=== PATIENT | male | born 1945 | race American Indian/Alaskan Native ===

== ENCOUNTER 2018-05-10 18:57 | Emergency (ER) | payer MEDICARE, OTHER ==
[2018-05-10 18:57] VITALS: BMI 31.4
[2018-05-10] MEDS ORDERED: Sodium Chloride 0.9% 1,000 ML IV ONE ×2 (19:31→19:38)
--- NOTE | 2018-05-10 19:31 | C.PDOC ---
History Of Present Illness 73 year old male presents to the ED c/o intermittent abdominal pain associated with nausea for the last couple of days. Patient reports he has been drinking Zana Walker Black for his upset stomach. Patient also c/o constipation since Thursday, reports he has one episodes of emesis today. Patient denies fever, chills,diarrhea, vomit, rash, weakness, numbness. Time Seen by Provider: 05/10/18 19:30 Chief Complaint (Nursing): GI Problem History Per: Patient History/Exam Limitations: no limitations Onset/Duration Of Symptoms: Days Current Symptoms Are (Timing): Still Present Context: Other Severity: Moderate Pain Scale Rating Of: 4 Location Of Pain/Discomfort: Diffuse Radiation Of Pain To:: None Quality Of Discomfort: Dull, Aching Associated Symptoms: Nausea, Constipation. denies: Vomiting, Diarrhea, Urinary Symptoms Exacerbating Factors: Other Alleviating Factors: None Last Bowel Movement: Days Ago Recent travel outside of the [place]: No Additional History Per: Patient Past Medical History Reviewed: Historical Data, Nursing Documentation, Vital Signs Vital Signs: Last Vital Signs Temp 97.7 F 05/10/18 19:03 Pulse 91 H 05/10/18 19:03 Resp 20 05/10/18 19:03 BP 173/95 H 05/10/18 19:03 Pulse Ox 94 L 05/10/18 19:03 - Medical History PMH: Diabetes (NIDDM), Gastrointestinal Ulcer, HTN, Hypercholesterolemia Denies: Chronic Kidney Disease Surgical History: Hernia Repair - [facility] Procedures CLOSED ENDOSCOPIC BIOPSY OF LARGE INTESTINE (09/05/12) ENDO EXCISION/DEST OF LESION OR TISSUE OF STOMACH (09/05/12) ENDOSC POLYPECTOMY OF LG INTEST (05/23/13) ESOPHAGOGASTRODUODENOSCOPY [EGD] W/CLOSED BIOPSY (05/23/13) INJECT/INFUSE ELECTROLYT (08/25/12) INJECT/INFUSE NEC (08/25/12) Family History: States: Unknown Family Hx - Social History Hx Tobacco Use: No Hx Alcohol Use: Yes Hx Substance Use: No - Immunization History Hx Tetanus Toxoid Vaccination: Yes Hx Influenza Vaccination: Yes Hx Pneumococcal Vaccination: Yes Review Of Systems Constitutional: Negative for: Fever, Chills Cardiovascular: Negative for: Chest Pain Respiratory: Negative for: Shortness of Breath Gastrointestinal: Positive for: Nausea, Abdominal Pain, Constipation. Negative for: Vomiting, Diarrhea Genitourinary: Negative for: Dysuria Musculoskeletal: Negative for: Back Pain Skin: Negative for: Rash Neurological: Negative for: Weakness, Numbness Physical Exam - Physical Exam Appears: Non-toxic, No Acute Distress Skin: Warm, Dry Head: Normacephalic Eye(s): bilateral: Normal Inspection Oral Mucosa: Moist Neck: Supple Chest: Symmetrical Cardiovascular: Rhythm Regular Respiratory: No Rales, Rhonchi (scattered), No Wheezing Gastrointestinal/Abdominal: Soft, No Tenderness, Distention (severely), No Guarding, No Rebound, No Ascites Back: No CVA Tenderness Extremity: Normal ROM, No Tenderness, Pedal Edema (bilateral trace), Capillary Refill (< 2 seconds) Extremity: Bilateral: Atraumatic Pulses: Left Dorsalis Pedis: Normal, Right Dorsalis Pedis: Normal Neurological/Psych: Oriented x3, Normal Speech, Normal Cognition Gait: Steady ED Course And Treatment - Laboratory Results Result Diagrams: 05/10/18 19:54 05/10/18 19:54 ECG: Interpreted By Me, Viewed By Me ECG Rhythm: Sinus Rhythm (88), Nonspecific Changes O2 Sat by Pulse Oximetry: 94 Pulse Ox Interpretation: Normal - CT Scan/US CT abd/pelvis Other Rad Studies (CT/US): Read By Radiologist, Radiology Report Reviewed CT/US Interpretation: EXAM: CT Abdomen and Pelvis with IV contrast. CLINICAL HISTORY: PATIENT WITH NAUSEA, VOMITING, BLOATINESS ?[facility]. TECHNIQUE: Axial computed tomography images of the abdomen and pelvis with intravenous contrast. 0.00 mGy-cm. CONTRAST: With; 100MLS VISI 320. COMPARISON: CT\SD - ABD PELVIS IV CONTRAST ONLY - 09/27/2014 03:52 AM EDT. FINDINGS: LUNG BASES: Mild atelectasis near the lung bases, left greater than right. LIVER: The liver again demonstrates diffuse fatty infiltration. GALLBLADDER AND BILE DUCTS: The gallbladder appears within normal limits. No radioopaque gallstones are seen. No biliary ductal dilatation is evident. PANCREAS: Unremarkable. SPLEEN: Unremarkable. ADRENAL GLANDS: Unremarkable. KIDNEYS, URETERS, AND BLADDER: The kidneys appear within normal limits. There is no hydronephrosis or hydroureter. No urinary calculi are seen. STOMACH AND BOWEL: Small hiatal hernia. The visualized mid and distal esophagus or patulous. Please correlate clinically. No bowel obstruction. APPENDIX: Normal appendix. PERITONEUM: No ascites is present, as clinically questioned. No free air. LYMPH NODES: No lymphadenopathy is evident. REPRODUCTIVE: Unremarkable as visualized. VASCULATURE: Mild atherosclerosis of the abdominal aorta and branches. BONES: Mild multilevel degenerative spine changes. MISCELLANEOUS: Small fat containing periumbilical hernia. There are small, right greater than left fat containing inguinal hernias. IMPRESSION: 1. The liver again demonstrates diffuse fatty infiltration. Slightly improved as compared with prior. 3. Small hiatal hernia. Similar to prior. 4. The visualized mid and distal esophagus appear patulous. Please correlate clinically. 5. There are small, right greater than left fat containing inguinal hernias. These are similar to prior. 6. Normal appendix. 7. No ascites is present, as clinically questioned. 8. Additional findings as described above. . Electronically signed on May 10, 2018 11:49:23 PM EST by: Dillon Riley M.D., KIERSTEN Certified By ABR & CBC[facility]. Fellowship Trained MRI and CT Specialist Progress Note: Plan: - Labs. - Protonix 40 mg IVP. - IV fluids. - Zofran 4 mg IVP. - UA Reevaluation Time: 00:14 Reassessment Condition: Improved Disposition Counseled Patient/Family Regarding: Studies Performed, Diagnosis, Need For Followup, Rx Given - Disposition Referrals: Meng Keith MD [Staff Provider] - Disposition: HOME/ ROUTINE Disposition Time: 19:31 Condition: FAIR Additional Instructions: Please return if symptoms recur Prescriptions: Polyethylene Glycol 3350 [Miralax] 17 gm PO DAILY #270 ml Instructions: Constipation, Adult (DC), Alcohol Use - When Is Drinking a Problem? Forms: [employer] (Swedish) - Clinical Impression Clinical Impression: Abdominal pain, Alcohol intoxication, Constipation - Scribe Statement The provider has reviewed the documentation as recorded by the Scribe Issac Benavidez All medical record entries made by the Scribe were at my direction and personally dictated by me. I have reviewed the chart and agree that the record accurately reflects my personal performance of the history, physical exam, medical decision making, and the department course for this patient. I have also personally directed, reviewed, and agree with the discharge instructions and disposition.
[2018-05-10] MEDS ORDERED: Sodium Chloride 0.9% 1,000 ML ONE (19:46)
[2018-05-10 20:26] LABS: BASO % 0.3 % (0.0-2.0); LYMPH # 1.5 K/uL (1.0-4.3); MEAN PLATELET VOLUME 8.9 fL (7.2-11.7); MONO # 0.3 K/uL (0.0-0.8)
[2018-05-10 20:29] LABS: ALB/GLOB RATIO 1.5 (1.0-2.1); ALBUMIN 4.6 g/dL (3.5-5.0); ALT/SGPT 37 U/L (21-72); AST/SGOT 82 U/L (17-59); BLOOD UREA NITROGEN 8 mg/dL (9-20); CALCIUM 8.3 mg/dl (8.6-10.4); GFR NON-AFRICAN AMERICAN 54; LIPASE 125 U/L (23-300)
[2018-05-10 20:33] LABS: PROTHROMBIN TIME 11.4 SECONDS (9.7-12.2)
[2018-05-10 20:45] LABS: EOS % 0.8 % (0.0-4.0); HEMOGLOBIN 13.2 g/dL (12.0-18.0); LYMPH % 48.6 % (20.0-40.0); MEAN CELL VOLUME 72.8 fL (80.0-94.0); MEAN CORPUSCULAR HEMOGLOBIN 22.5 pg (27.0-31.0); MEAN CORPUSCULAR HGB CONC 30.9 g/dL (33.0-37.0); MONO % 10.5 % (0.0-10.0); NEUT # 1.3 K/uL (1.8-7.0); NEUT % 39.8 % (50.0-75.0); NRBC % 0.7 % (0.0-2.0); RBC 5.85 Mil/uL (4.40-5.90); RED CELL DISTRIBUTION WIDTH 17.4 % (11.5-14.5); WHITE BLOOD COUNT 3.2 K/uL (4.8-10.8)
[2018-05-10] MEDS ORDERED: Iodixanol 320 MG/ML 100 ML BOTTLE IV ONE (21:58)
[2018-05-10 22:05] LABS: URINE BILIRUBIN NEGATIVE (NEGATIVE); URINE CLARITY Clear (Clear); URINE COLOR Yellow (YELLOW); URINE GLUCOSE (UA) NORMAL (Normal); URINE LEUKOCYTE ESTERASE NEG Leu/uL (Negative); URINE PROTEIN 2+ mg/dL (NEGATIVE); URINE UROBILINOGEN NORMAL mg/dL (0.2-1.0)
[2018-05-10 22:10] LABS: URINE BLOOD TRACE (NEGATIVE)
[2018-05-11 00:15] VITALS: BP 120/72; PULSE 81; RESP 16; TEMP 98.4
[2018-05-11 00:17] VITALS: O2SAT 94
--- NOTE | 2018-05-11 12:09 | CT ---
Date of service: 05/10/2018 PROCEDURE: CT Abdomen and Pelvis with contrast HISTORY: abd pain, ascites COMPARISON: CT abdomen and pelvis with IV contrast performed 09/27/14 TECHNIQUE: Contrast dose: 100 mL Visipaque 320 IV Radiation dose: Total exam DLP = 1323.5 mGy-cm. This CT exam was performed using one or more of the following dose reduction techniques: Automated exposure control, adjustment of the mA and/or kV according to patient size, and/or use of iterative reconstruction technique. FINDINGS: LOWER THORAX: Mild left basilar atelectasis. No visible pleural effusion or pneumothorax. Small to moderate hiatal hernia. Patulous appearance of the distal esophagus. LIVER: Hypoattenuation of the liver compatible with hepatic steatosis. GALLBLADDER AND BILE DUCTS: Unremarkable. PANCREAS: Unremarkable. SPLEEN: Unremarkable. ADRENALS: See below. KIDNEYS AND URETERS: The kidneys enhance symmetrically. No hydronephrosis or obstructing calculus identified. 11 mm left lower pole renal hypodensity, possibly cyst. Lateral limb of the right adrenal gland is indistinguishable from this mass however renal origin is favored. Additionally, a small adrenal nodule is noted measuring approximately 8 mm. The left adrenal gland appears unremarkable. VASCULATURE: No aortic aneurysm. Atherosclerotic calcifications of the aorta. BOWEL: Stomach is nondistended. Lack of oral contrast limits evaluation for bowel pathology. Bowel loops appear within normal limits of caliber without evidence of obstruction. APPENDIX: No secondary signs of acute appendicitis. PERITONEUM: No significant free fluid. No definite free air. LYMPH NODES: No bulky adenopathy identified. BLADDER: Unremarkable. REPRODUCTIVE: Unremarkable. BONES: Degenerative changes. Chronic healed fracture deformities. OTHER FINDINGS: Small fat containing bilateral inguinal hernias. Small umbilical hernia. IMPRESSION: 11 mm right upper pole heterogeneous exophytic mass worrisome for malignant neoplasm such as RCC unless proven otherwise. Lateral limb of the right adrenal gland is indistinguishable from this mass however renal origin is favored. Additionally, a small adrenal nodule is noted measuring approximately 8 mm. 11 mm left lower pole renal hypodensity, possibly cyst. Hypoattenuation of the liver compatible with hepatic steatosis. Study marked for PA review and divergent findings discussed with SAPPHIRE Barreto on 05/11/18 at 11:57 a.m.
--- NOTE | 2018-05-11 17:21 | CARD ---
APPROVED REPORT Date of service: 05/10/2018 EKG Measurement Heart [id number] [id number] <Conclusion> Normal sinus rhythm Anterior infarct, age undetermined Abnormal ECG
== END 2018-05-11 00:25 | disposition home or self-care (01) ==
LOC: C.ER 18:57
DX: K59.00 Constipation, unspecified (principal); R10.9 Unspecified abdominal pain; F10.129 Alcohol abuse with intoxication, unspecified; Y90.7 Blood alcohol level of 200-239 mg/100 ml
CPT/HCPCS: 74177; 80053; 81001; 82140; 83690; 85025; 85610; 85730; 93005; 96374; 96375; 99284; C9113; G0480; J2405; J7030; Q9967